=== PATIENT | male | born 1980 | race African-American/Black ===

== ENCOUNTER 2016-11-15 14:16 | Emergency (ER) | payer OTHER ==
[~2016-11-15] VITALS: Ht 195.6 cm; Wt 124.1 kg
[~2016-11-15 14:16] MED LIST: MUCUS ER600 MG PO; NAPROSYN500 MG PO; NAPROXEN500 MG PO; ROBITUSSIN NIG118 ML PO; TESSALON PERLE100 MG PO; ZITHROMAX Z-PA250 MG PO; ZOFRAN ODT4 MG PO
[2016-11-15 14:50] LABS: MCH 29.6 PG (29.0-34.0); MCHC 34.1 G/DL (30.0-36.0); MCV 86.7 FL (86-99); MEAN PLAT.VOLUME 9.9 uM^3 (9.0-12.4); PLATELET COUNT 262 K/uL (156-360); RBC DIS.WIDTH-CV 13.4 % (11.8-14.6); RBC DIS.WIDTH-SD 41.7 % (39-53); RED BLOOD COUNT 4.73 M/uL (4.00-5.50); WHITE BLOOD COUNT 7.6 K/uL (4.1-10.2)
[2016-11-15 15:02] LABS: CHLORIDE 109 mEq/L (99-109); POTASSIUM 3.8 mEq/L (3.7-5.4); SODIUM 142 mEq/L (136-147)
[2016-11-15 15:03] LABS: GLUCOSE 118 mg/dL (70-99)
[2016-11-15 15:05] LABS: ANION GAP 13 MEQ/L (2-14)
[2016-11-15 15:07] LABS: GFR ESTIMATE (CALCULATED) > 59 mL/min/
[2016-11-15 15:08] LABS: UREA NITROGEN (BUN) 13 mg/dL (9-23)
[2016-11-15 15:10] LABS: TROP-I INTERPRETATION NEGATIVE; TROPONIN-I < 0.01 ng/mL (0.0-0.30)
[2016-11-15 18:02] VITALS: BP 158/98
== END 2016-11-15 18:03 | disposition home or self-care (01) ==
LOC: RME 14:16 → EME 14:16 → RME 18:03
DX: R07.89 Other chest pain (principal); I10 Essential (primary) hypertension; F17.200 Nicotine dependence, unspecified, uncomplicated
CPT/HCPCS: 71020; 80048; 84484; 85027; 93005; 99281; 99283

== ENCOUNTER 2016-12-26 19:35 | Observation (INO) | payer OTHER ==
[~2016-12-26] VITALS: Ht 195.6 cm; Wt 125.0 kg
[2016-12-26 20:12] LABS: HEMATOCRIT 43.1 % (38.0-50.0); MCH 29.3 PG (29.0-34.0); MCHC 34.6 G/DL (30.0-36.0); MCV 84.7 FL (86-99); MEAN PLAT.VOLUME 9.9 uM^3 (9.0-12.4); PLATELET COUNT 316 K/uL (156-360); RBC DIS.WIDTH-CV 13.2 % (11.8-14.6); RBC DIS.WIDTH-SD 40.4 % (39-53); RED BLOOD COUNT 5.09 M/uL (4.00-5.50); WHITE BLOOD COUNT 9.6 K/uL (4.1-10.2)
[2016-12-26 20:33] LABS: TROP-I INTERPRETATION NEGATIVE; TROPONIN-I < 0.01 ng/mL (0.0-0.30)
[2016-12-26 20:36] LABS: CHLORIDE 106 mEq/L (99-109); POTASSIUM 3.5 mEq/L (3.7-5.4); SODIUM 140 mEq/L (136-147)
[2016-12-26 20:38] LABS: GLUCOSE 127 mg/dL (70-99)
[2016-12-26 20:39] LABS: SERUM ETHYL ALCOHOL 87 mg/dL
[2016-12-26 20:40] LABS: ANION GAP 10 MEQ/L (2-14)
[2016-12-26 20:42] LABS: GFR ESTIMATE (CALCULATED) > 59 mL/min/
[2016-12-26 20:43] LABS: UREA NITROGEN (BUN) 10 mg/dL (9-23)
[2016-12-26] MEDS ORDERED: CLONAZEPAM1 MG PO (23:39)
[2016-12-26] MEDS ORDERED: CLONAZEPAM0.5 MG PO (23:39)
[2016-12-27 01:25] VITALS: BP 150/97
[2016-12-27 03:02] LABS: TROP-I INTERPRETATION NEGATIVE; TROPONIN-I < 0.01 ng/mL (0.0-0.30)
[2016-12-27 04:13] VITALS: BP 115/70
[2016-12-27 09:07] VITALS: BP 143/66
[2016-12-27 09:34] LABS: TROP-I INTERPRETATION NEGATIVE; TROPONIN-I < 0.01 ng/mL (0.0-0.30)
[2016-12-27 10:51] LABS: ALKALINE PHOSPHATASE 52 IU/L (3-129); ANION GAP 9 MEQ/L (2-14); CHLORIDE 104 MEQ/L (99-109); GFR ESTIMATE (CALCULATED) > 59 mL/min/; GLUCOSE 126 mg/dL (70-99); POTASSIUM 4.1 MEQ/L (3.7-5.4); SAMPLE HEMOLYSIS CHECK 0; SAMPLE ICTERIC CHECK 0; SAMPLE LIPEMIA CHECK 0; SODIUM 140 MEQ/L (136-147); TOTAL BILIRUBIN 0.6 MG/DL (0.0-1.0); UREA NITROGEN (BUN) 13 mg/dL (9-23)
[2016-12-27 11:10] LABS: INFLUENZA A VIRAL ANTIGEN NEGATIVE; INFLUENZA B VIRAL ANTIGEN NEGATIVE
[2016-12-27 11:11] LABS: HEMATOCRIT 40.7 % (38.0-50.0); MCH 29.9 PG (29.0-34.0); MCHC 33.4 G/DL (30.0-36.0); MEAN PLAT.VOLUME 10.5 uM^3 (9.0-12.4); PLATELET COUNT 255 K/uL (156-360); RBC DIS.WIDTH-CV 13.6 % (11.8-14.6); RBC DIS.WIDTH-SD 44.6 % (39-53); RED BLOOD COUNT 4.55 M/uL (4.00-5.50); WHITE BLOOD COUNT 6.8 K/uL (4.1-10.2)
[2016-12-27 11:16] LABS: MCV 89.5 FL (86-99)
[2016-12-27] MEDS ORDERED: FOLIC ACID1 MG PO (11:52)
[2016-12-27] MEDS ORDERED: ASPIR 8181 M1 PO (11:52)
[2016-12-27] MEDS ORDERED: THIAMINE HCL100 MG PO (11:52)
[2016-12-27 12:45] VITALS: BP 174/94
== END 2016-12-27 12:49 | disposition home or self-care (01) ==
LOC: EME 19:35 → EDOF 12-27 00:05 → 5WEST 12-27 01:04
PROVIDERS: Hospitalist; Physician Assistant
DX: R07.89 Other chest pain (principal); R94.31 Abnormal electrocardiogram [ECG] [EKG]; R00.2 Palpitations; F10.10 Alcohol abuse, uncomplicated; Z82.49 Family history of ischemic heart disease and other diseases of the circulatory system; Z83.3 Family history of diabetes mellitus; F17.210 Nicotine dependence, cigarettes, uncomplicated; F41.9 Anxiety disorder, unspecified
CPT/HCPCS: 71020; 80048; 80053; 80306 90; 81003; 83735; 84484; 85027; 85379; 87502; 93005; 99281; 99285; G0378; G0480; J2060; J3411; J3475; J7030

== ENCOUNTER 2017-02-28 20:26 | Emergency (ER) | payer OTHER ==
[~2017-02-28] VITALS: Ht 195.6 cm; Wt 129.6 kg
[~2017-02-28 20:26] MED LIST changes: +ASPIR 8181 M1 PO; +CLONAZEPAM0.5 MG PO; +CLONAZEPAM1 MG PO; +FOLIC ACID1 MG PO; +THIAMINE HCL100 MG PO
[2017-02-28 20:35] VITALS: BP 158/98
[2017-02-28] MEDS ORDERED: NAPROSYN500 MG PO (21:40)
== END 2017-02-28 21:57 | disposition home or self-care (01) ==
LOC: EME 20:26
DX: S50.01XA Contusion of right elbow, initial encounter (principal); W01.0XXA Fall on same level from slipping, tripping and stumbling without subsequent striking against object, initial encounter; Y92.89 Other specified places as the place of occurrence of the external cause; I10 Essential (primary) hypertension; F17.200 Nicotine dependence, unspecified, uncomplicated
CPT/HCPCS: 73060; 73090; 99281; 99284